=== PATIENT | female | born 1990 | race Caucasian/White ===

== ENCOUNTER 2018-03-21 00:32 | Emergency (ER) | payer MEDICAID ==
[2018-03-21 01:25] VITALS: BP 98/62; TEMP 98.1; O2SAT 100
--- NOTE | 2018-03-21 02:55 | C.PDOC ---
History Of Present Illness 27yo female, comes to ER for evaluation of pain and swelling to her left 3rd digit. Patient states she was playing with her ring and placed it from her right 4th digit onto her left 3rd; patient states the ring got stuck on her finger and now she has the pain and swelling. She was unable to remove the ring on her own, prompting the ER visit. Time Seen by Provider: 03/21/18 02:20 Chief Complaint (Nursing): Upper Extremity Problem/Injury History Per: Patient History/Exam Limitations: no limitations Onset/Duration Of Symptoms: Hrs Current Symptoms Are (Timing): Still Present Quality: "Pain" Additional History Per: Patient Past Medical History Reviewed: Historical Data, Nursing Documentation, Vital Signs Vital Signs: Last Vital Signs Temp 98.1 F 03/21/18 01:19 Pulse 70 03/21/18 03:51 Resp 12 03/21/18 03:51 BP 98/62 L 03/21/18 01:19 Pulse Ox 100 03/22/18 01:18 - Medical History PMH: No Chronic Diseases Surgical History: No Surg Hx Family History: States: No Known Family Hx - Social History Hx Alcohol Use: No Hx Substance Use: No - Immunization History Hx Tetanus Toxoid Vaccination: Yes Hx Influenza Vaccination: Yes Hx Pneumococcal Vaccination: No Review Of Systems Musculoskeletal: Positive for: Other (left 3rd digit pain and swelling) Neurological: Negative for: Numbness Physical Exam - Physical Exam Appears: Non-toxic Skin: Normal Color Cardiovascular: Rhythm Regular Respiratory: Normal Breath Sounds Extremity: Normal ROM (FROM all digits on left hand), Capillary Refill (< 2 seconds), No Deformity, Swelling (minimal swelling noted to left 3rd digit distal to ring; no erythema noted) Pulses: Left Radial: Normal, Right Radial: Normal Neurological/Psych: Oriented x3, Normal Motor, Normal Sensation ED Course And Treatment O2 Sat by Pulse Oximetry: 100 (RA) Pulse Ox Interpretation: Normal Progress Note: Ring cutter used by provider and ring removed from finger with no difficulty. On reassesment, patient's finger with improvement in swelling; capillary refill < 2 seconds and neurovascular sensations intact. Patient stable for discharge home. Disposition Counseled Patient/Family Regarding: Diagnosis, Need For Followup - Disposition Referrals: [facility] [Outside] Disposition: HOME/ ROUTINE Disposition Time: 02:52 Condition: STABLE Additional Instructions: Apply ICE to finger for swelling Return to ER if worse Forms: General Discharge Instructions - Clinical Impression Clinical Impression: Swelling of finger, Foreign body (FB) in soft tissue - PA / ROLL FINISHER / Resident Statement MD/DO has reviewed & agrees with the documentation as recorded. - Scribe Statement The provider has reviewed the documentation as recorded by the Scribe Taylor Muniz Provider Attestation: All medical record entries made by the Mattibjennifer were at my direction and personally dictated by me. I have reviewed the chart and agree that the record accurately reflects my personal performance of the history, physical exam, medical decision making, and the department course for this patient. I have also personally directed, reviewed, and agree with the discharge instructions and disposition.
[2018-03-21 03:54] VITALS: PULSE 70; RESP 12
== END 2018-03-21 03:30 | disposition home or self-care (01) ==
LOC: C.ER 00:32
DX: M79.89 Other specified soft tissue disorders (principal); S60.453A Superficial foreign body of left middle finger, initial encounter; W49.04XA Ring or other jewelry causing external constriction, initial encounter; Y92.9 Unspecified place or not applicable